=== PATIENT | female | born 1955 ===

== ENCOUNTER 2021-05-05 13:37 | Outpatient (REF) | payer OTHER, MEDICARE, SELFPAY ==
[2021-05-05 15:09] LABS: Estimated Average Glucose 189 mg/dL; Hemoglobin A1c % 8.2 %
[2021-05-05 15:44] LABS: Folate 2.6 ng/mL (> or = 4.0); Vitamin B12 181 pg/mL (200-900)
[2021-05-08 01:06] LABS: Copper, serum 148 mcg/dL (70-175)
== END 2021-05-05 13:38 | disposition home or self-care (01) ==
LOC: HO.LAB 13:37
PROVIDERS: PCP Internal Medicine; Visit Provider Psychiatry & Neurology Neurology
DX: G95.9 Disease of spinal cord, unspecified (principal)
CPT/HCPCS: 36415; 82525; 82607; 82746; 83036

== ENCOUNTER 2021-06-18 13:38 | Outpatient (REF) | payer OTHER, MEDICARE, SELFPAY ==
--- NOTE | ~2021-06-18 | MR_ITS ---
EXAMINATION: MR THORACIC SPINE WITHOUT CONTRAST CLINICAL INFORMATION: Myelopathy. Numbness in both legs. COMPARISON: None TECHNIQUE: MRI of the thoracic spine was obtained using routine sequences without contrast. FINDINGS: There is moderate to severe multilevel disc space narrowing with endplate spurring. Mild thoracic kyphosis evident. No marrow or soft tissue edema is visible. There is a mild rightward curvature of the thoracic spine. No compression fractures are seen. Multilevel mild disc bulges and facet arthropathy present in the upper thoracic spine without central canal stenosis or significant foraminal encroachment. No cord signal abnormality or syrinx is seen. At the T8-T9 level, there are bilateral subarticular zone disc protrusions and a mild disc bulge resulting in mild ventral cord and thecal sac distortion with mild right foraminal narrowing. At the T9-T10 level, there is a shallow right paracentral to subarticular zone disc protrusion and mild disc bulge distorting the ventral thecal sac with facet arthropathy resulting in slight narrowing of the central canal. At the T10-T11 level, there is severe central canal stenosis due to exuberant ligamentous thickening posteriorly with facet arthropathy and a broad-based disc bulge compressing the cord. Myelomalacia is visible within the cord as well at this level. Underlying disc bulge and osseous spurring with moderate to severe foraminal encroachment. At the T11-T12 level, there is a central disc protrusion and moderate facet arthropathy with moderate central canal stenosis and mild cord distortion. Facet spurring and bulging disc result in moderate left foraminal encroachment. There is moderate facet arthropathy mildly distorting the dorsal thecal sac at the T12-L1 level. The imaged portions of the lungs are grossly clear. The paraspinal soft tissues are unremarkable. MR/MR thoracic spine wo con IMPRESSION: Moderate thoracic spondylosis with a mild kyphotic curvature. Severe central canal stenosis and cord compression with chronic-appearing myelomalacia at the T10-T11 level. Central disc protrusion and hypertrophic facet arthropathy at the T11-T12 level with moderate central canal stenosis and mild cord distortion. Paracentral disc protrusions at the T8-T9 and T9-T10 level distorting the ventral thecal sac and slightly encroaching upon the central canal.
== END 2021-06-18 13:39 | disposition home or self-care (01) ==
LOC: HO.MRI 13:38
PROVIDERS: PCP Internal Medicine; Visit Provider Psychiatry & Neurology Neurology
DX: G95.9 Disease of spinal cord, unspecified (principal); R20.0 Anesthesia of skin
CPT/HCPCS: 72146